=== PATIENT | female | born 1990 | race Caucasian/White ===

== ENCOUNTER 2018-05-09 20:10 | Emergency (ER) | payer SELFPAY ==
[2018-05-09 20:47] VITALS: BP 117/67; PULSE 89; RESP 18; TEMP 98.4; O2SAT 97
[2018-05-09] MEDS ORDERED: CLINDAMYCIN HYDROCHLORIDE 150 MG CAP PO SCH (21:15)
[2018-05-09] MEDS ORDERED: CIPROFLOXACIN HCL 500 MG TAB PO ONE (21:45)
[2018-05-09] MEDS ORDERED: CIPROFLOXACIN HCL 500 MG TAB PO SCH (21:45)
== END 2018-05-09 21:49 | disposition home or self-care (01) | DRG 159 ==
LOC: ED 20:10
DX: S01.551A Open bite of lip, initial encounter (principal); S01.85XA Open bite of other part of head, initial encounter
CPT/HCPCS: 99282; A9270-GY